=== PATIENT | female | born 1990 | race American Indian/Alaskan Native ===

== ENCOUNTER 2020-08-27 01:17 | Outpatient (CLI) | payer MEDICAID ==
[2020-08-27 01:40] VITALS: BP 122/67
== END 2020-08-27 05:04 | disposition home or self-care (01) ==
LOC: TRG 01:17 → APU 01:25 → TRG 05:04
PROVIDERS: ATTEND Obstetrics & Gynecology
DX: Z34.93 Encounter for supervision of normal pregnancy, unspecified, third trimester (principal); Z3A.40 40 weeks gestation of pregnancy
CPT/HCPCS: 59025

== ENCOUNTER 2020-09-01 19:28 | Outpatient (CLI) | payer MEDICAID ==
[2020-09-01 19:46] VITALS: BP 123/68
== END 2020-09-01 21:00 | disposition home or self-care (01) ==
LOC: TRG 19:28 → APU 19:34 → TRG 21:00
PROVIDERS: ATTEND Obstetrics & Gynecology
DX: O47.1 False labor at or after 37 completed weeks of gestation (principal); Z3A.40 40 weeks gestation of pregnancy
CPT/HCPCS: 59025

== ENCOUNTER 2020-09-02 20:27 | Inpatient (IN) | payer MEDICAID ==
[2020-09-02] MEDS ORDERED: LACTATED RINGERS 1,000 ML IV SCH ×2 (22:00→22:45)
[2020-09-02] MEDS ORDERED: NalbUPHINE 10 MG/1 ML INJ IV PRN (22:32)
[2020-09-02] MEDS ORDERED: fentaNYL 100 MCG/2 ML INJ IV PRN (22:32)
[2020-09-02] MEDS ORDERED: TERBUTALINE 1 MG/1 ML INJ SUB-Q PRN (22:32)
[2020-09-02] MEDS ORDERED: miSOPROStol 200 MCG TAB PR PRN (22:32)
[2020-09-02] MEDS ORDERED: MINERAL OIL 30 ML ORAL LIQD PO PRN (22:32)
[2020-09-02] MEDS ORDERED: LIDOCAINE (2%) 20 MG/1 ML VIAL 20 ML MDV INFILTRATI ONE (22:32)
[2020-09-02] MEDS ORDERED: ONDANSETRON 4 MG/2 ML INJ IV PRN (22:32)
[2020-09-02] MEDS ORDERED: ePHEDrine SULFATE 50 MG/1 ML INJ IV PRN (22:32)
[2020-09-02] MEDS ORDERED: PROMETHAZINE 25 MG TAB PO PRN (22:32)
--- NOTE | 2020-09-02 22:40 | History and Physical Report ---
History of Present Illness Date of examination: 09/02/20 Chief complaint: scheduled induction of labor for post term preg at 41wks History of present illness: at 41.0wks by LMP c/w U/S with care at [facility]. Pt admits to movement, denies leakage of fluid, admits to passing mucus plug, denies vaginal bleeding or headache. pt admits to feeling ctx at times. Past History Past Medical History: other (Obesity) Past Surgical History: no surgical history Family/Genetic History: none Social history: no significant social history - Obstetrical History Expected Date of Delivery: 08/26/20 Actual Gestation: 41 Week(s) 0 Day(s) : 2 Para: 1 (vag delivery with baby 8lbs) Hx # Term Pregnancies: 1 Number of Living Children: 1 Medications and Allergies Allergies Allergy/AdvReac Type Severity Reaction Status Date / Time No Known Allergies Allergy Unverified 08/27/20 01:51 Active Meds: Active Medications Dinoprostone (Dinoprostone 10 Mg Vag Supp) 10 mg VG ONCE ONE Stop: 09/02/20 23:01 Ephedrine Sulfate (Ephedrine Sulfate 50 Mg/1 Ml Inj) 10 mg IV Q2M PRN PRN Reason: Hypotension Fentanyl (Fentanyl 100 Mcg/2 Ml Inj) 100 mcg IV Q2H PRN PRN Reason: Pain,Severe (7-10) LABOR PAIN Lactated Ringer's (Lactated Ringers) 1,000 mls @ 125 mls/hr IV DIRECT MARISSA Oxytocin/Sodium Chloride (Pitocin/Ns 30 Unit/500ml) 30 units in 500 mls @ 2 mls/hr IV TITR MARISSA; Protocol Lactated Ringer's (Lactated Ringers) 1,000 mls @ 125 mls/hr IV DIRECT MARISSA Oxytocin/Sodium Chloride (Pitocin/Ns 30 Unit/500ml) 30 units in 500 mls @ 40 mls/hr IV TITR MARISSA; Protocol Lidocaine (Lidocaine (2%) 20 Mg/1 Ml Vial 20 Ml Mdv) 20 ml INFILTRATI ONCE ONE Stop: 09/02/20 22:33 Mineral Oil (Mineral Oil 30 Ml Oral Liqd) 30 ml PO QHS PRN PRN Reason: Constipation Misoprostol (Misoprostol 200 Mcg Tab) 800 mcg NM ONCE PRN PRN Reason: Uterine Bleeding Nalbuphine HCl (Nalbuphine 10 Mg/1 Ml Inj) 10 mg IV Q2H PRN PRN Reason: Pain, Moderate (4-6) Ondansetron HCl (Ondansetron 4 Mg/2 Ml Inj) 4 mg IV Q8H PRN PRN Reason: Nausea And Vomiting Promethazine HCl (Promethazine 25 Mg Tab) 25 mg PO Q6H PRN PRN Reason: Nausea And Vomiting Terbutaline Sulfate (Terbutaline 1 Mg/1 Ml Inj) 0.25 mg SUB-Q ONCE PRN PRN Reason: Hyperstimulation/Hypertonicity Review of Systems All systems: negative (ocassional ctx) - Vital Signs Vital signs: Vital Signs Pulse BP 126 H 128/73 09/02/20 20:55 09/02/20 20:55 Temp Pulse Resp BP Pulse Ox 98.2 F 110 H 16 128/73 98 09/02/20 20:56 09/02/20 22:35 09/02/20 20:56 09/02/20 20:56 09/02/20 22:35 - Physical Exam Breasts: Positive: deferred Cardiovascular: Regular rate Lungs: Positive: Normal air movement Abdomen: Positive: soft Genitourinary (Female): Positive: normal external genitalia Vulva: both: normal Vagina: Positive: normal moisture Uterus: Positive: enlarged (non-tender gravid) Anus/Rectum: Positive: normal perianal skin Extremities: Positive: normal - Obstetrical FHR: category 1 Uterine Contraction Monitor Mode: External Cervical Dilatation: 4 (2 by admit nurse) Cervical Effacement Percentage: 70 station: -2 Uterine Contraction Pattern: Irregular Uterine Contraction Intensity: Moderate Results All other labs normal. Assessment and Plan Post term in latent labor, favorable cervix, GBS negative with fetus LGA; abnormal elevated ALT at 44 earlier in the and BP remains wnl 1. admit to labor and delivery and augment with pitocin 2. May have epidural or IV pain med 3. Will check CMP with elevated ALT earlier in the 4. Will arom with descent Expect
[2020-09-02] MEDS ORDERED: OXYTOCIN DRIP 30 UNITS/500 ML BAG IV SCH ×2 (23:00)
[2020-09-02] MEDS ORDERED: DINOPROSTONE 10 MG VAG SUPP VG ONE (23:00)
[2020-09-02 23:10] LABS: Hematocrit 37.4 % (30.3-42.9); Hemoglobin 13.3 gm/dl (10.1-14.3); Mean Corpuscular HGB Conc 36 % (30-34); Mean Corpuscular Volume 93 fl (79-97); Platelet Count 173 K/mm3 (140-440); Red Blood Count 4.01 M/mm3 (3.65-5.03); Red Cell Distribution Width 12.8 % (13.2-15.2)
[2020-09-02 23:30] LABS: Alanine Aminotransferase 23 units/L (7-56); Albumin 3.9 g/dL (3.9-5); Blood Urea Nitrogen 8 mg/dL (7-17); Hemolysis Index 268
[2020-09-02 23:43] LABS: BUN/Creatinine Ratio 16
--- NOTE | 2020-09-03 01:12 | Event Note ---
Date: 09/03/20 pt evaluated and pelvic unchanged with IV pitocin at 4mu/min; discussed plan of care and pt accepted AROM done and same clear fluid and IUPC placed. FHR remains with category I. Pt has not requested pain med. Expect
[2020-09-03] MEDS ORDERED: LIDOCAINE (2%) 20 MG/1 ML VIAL 20 ML MDV INFILTRATI ONE (04:57)
--- NOTE | 2020-09-03 05:32 | Procedure Note ---
OB Delivery Note - Delivery Date of Delivery: 09/03/20 Surgeon: ARABELLA GALAN Estimated blood loss: 300cc - Vaginal Delivery presentation: vertex Delivery position: OA Delivery induction: AROM Delivery augmentation: pitocin Delivery monitor: external FHT, external uterine, internal uterine Route of delivery: Delivery placenta: spontaneous Delivery cord: 3 umbilical vessels Delivery laceration: 2nd degree (perineal) Delivery repair: chromic Anesthesia: local Delivery comments: Called to room for vaginal delivery. Pt screaming and moving upwards in bed. SAVD of viable male, vertex, uncomplicated and spontaneous delivery of complete placenta with 3v cord. Sustained 2nd perineal laceration and same repaired with running locked 2-0 chromic sutures, local 1% lidocaine and excellent hemostasis. Bimanual massage done and clots cleared from lower uterine segment and cytotec 800mcg given per rectum. Pt given ancef 2g of Ancef for contamination of perineal laceration with maternal feces. Mom and baby stable. - Infant A at 1 minute: 8 at 5 minutes: 9 Gender: Male (3312g; clear amniotic fluid)
[2020-09-03] MEDS ORDERED: ceFAZolin/Water 2 GM/20 ML 2 GM/20 ML SYRINGE IV NR (06:00)
[2020-09-03] MEDS ORDERED: PROMETHAZINE 25 MG TAB PO PRN (08:34)
[2020-09-03] MEDS ORDERED: WITCH HAZEL/ GLYCERIN PAD TP PRN (08:34)
[2020-09-03] MEDS ORDERED: diphenhydrAMINE 25 MG CAP PO PRN (08:34)
[2020-09-03] MEDS ORDERED: PROMETHAZINE 25 MG RECT SUPP PR PRN (08:34)
[2020-09-03] MEDS ORDERED: LANOLIN/ZINC/DIMETHICONE (LANSINOH) 7 GM TP PRN (08:34)
[2020-09-03] MEDS ORDERED: ONDANSETRON 4 MG/2 ML INJ IV PRN (08:34)
[2020-09-03] MEDS: IBUPROFEN 600 MG TAB PO SCH ×2 (12:13→17:53)
[2020-09-03] MEDS: PRENATAL VIT27-FE FUMARATE-FOLIC ACID VIT TAB PO SCH (12:13)
[2020-09-03 18:30] LABS: Hematocrit 36.8 % (30.3-42.9); Hemoglobin 12.7 gm/dl (10.1-14.3)
[2020-09-03] MEDS: oxyCODONE /ACETAMINOPHEN 5-325MG TAB PO PRN (21:11)
[2020-09-03] MEDS ORDERED: MAGNESIUM HYDROXIDE (MOM) ORAL LIQD UDC PO PRN (22:00)
[2020-09-04] MEDS: IBUPROFEN 600 MG TAB PO SCH ×5 (04:34→15:00)
[2020-09-04] MEDS: oxyCODONE /ACETAMINOPHEN 5-325MG TAB PO PRN ×2 (05:31→15:33)
[2020-09-04] MEDS: PRENATAL VIT27-FE FUMARATE-FOLIC ACID VIT TAB PO SCH (09:47)
--- NOTE | 2020-09-04 12:04 | Progress Note ---
Assessment and Plan A: Day 1 Stable P: Follow routine orders Discharge to home today Return to clinic in 6 weeks for check Subjective - Subjective Date of service: 09/04/20 Patient reports: appetite normal, voiding normally, pain well controlled, flatus, bowel movement, ambulating normally : doing well, bottle feeding Objective - Vital Signs Latest vital signs: Vital Signs Temp Pulse Resp BP BP Pulse Ox 09/04/20 07:55 97.9 F 96 H 18 112/71 96 09/04/20 00:00 98.6 F 74 16 105/77 09/03/20 20:42 98.5 F 101 H 18 103/57 99 09/03/20 15:59 98.7 F 19 96/52 09/03/20 13:49 98.6 F 96 H 20 108/62 99 Intake and Output 09/03/20 09/04/20 09/04/20 22:59 06:59 14:59 Intake Total 440 300 360 Output Total 901 Balance -461 300 360 Intake: Oral 440 120 Intake, Free Water 300 240 Output: Urine 901 Void 901 Other: Total, Intake Amount 120 120 Total, Output Amount 1 # Voids Void 1 1 1 - Exam Breasts: Present: normal Cardiovascular: Present: Regular rate, Normal S1, Normal S2 Lungs: Present: Clear to auscultation, Normal air movement Abdomen: Present: normal appearance, soft, normal bowel sounds Uterus: Present: normal, firm, fundal height below umbilicus Extremities: Present: normal
--- NOTE | 2020-09-04 12:08 | Discharge Summary ---
Providers - Providers Date of Admission: 09/02/20 21:32 Date of discharge: 09/04/20 Attending physician: ARABELLA GALAN Primary care physician: ARABELLA GALAN Hospitalization Reason for admission: induction of labor Delivery: Episiotomy: none Laceration: 2nd degree Other procedures: none complications: none Discharge diagnosis: other (Postterm IUP delivered) baby: male Condition at discharge: Good Disposition: DC-01 TO HOME OR SELFCARE Plan - Provider Discharge Summary Activity: routine, no sex for 6 weeks, no heavy lifting 4 weeks, no strenuous exercise Diet: routine Instructions: routine Additional instructions: [] Smoking cessation referral if applicable(refer to patient education folder for contact #) [] Refer to [facility]'s [facility] Booklet Call your doctor immediately for: * Fever > 100.5 * Heavy vaginal bleeding ( >1 pad per hour) * Severe persistent headache * Shortness of breath * Reddened, hot, painful area to leg or breast * Drainage or odor from incision. * Keep incision clean and dry at all times and follow doctor's instructions regarding bathing/showering - Follow up plan Follow up: ARABELLA GAALN MD [Primary Care Provider] - 6 Weeks
[2020-09-04 17:44] VITALS: BP 120/56
== END 2020-09-04 16:00 | disposition home or self-care (01) | DRG 775 ==
LOC: TRG 20:27 → LD 20:28 → TRG 22:32 → OB 09-03 08:36
PROVIDERS: ADMIT Obstetrics & Gynecology; ATTEND Obstetrics & Gynecology
PROC: 10E0XZZ Delivery of Products of Conception, External Approach (ICD-10-PCS; principal; 2020-09-03)
PROC: 0KQM0ZZ Repair Perineum Muscle, Open Approach (ICD-10-PCS; 2020-09-03)
PROC: 10907ZC Drainage of Amniotic Fluid, Therapeutic from Products of Conception, Via Natural or Artificial Opening (ICD-10-PCS; 2020-09-03)
PROC: 10H07YZ Insertion of Other Device into Products of Conception, Via Natural or Artificial Opening (ICD-10-PCS; 2020-09-03)
DX: O99.214 Obesity complicating childbirth (principal); Z3A.41 41 weeks gestation of pregnancy; Z37.0 Single live birth; O70.1 Second degree perineal laceration during delivery; Z20.822 Contact with and (suspected) exposure to COVID-19
CPT/HCPCS: 36415; 59025; 80053; 85014; 85018; 85027; 86850; 86900; 86901; G0378; J0690; J2590; J3010; U0003